=== PATIENT | male | born 1990 ===

== ENCOUNTER 2025-05-28 17:24 | Outpatient (REF) | payer SELFPAY ==
[2025-05-28 17:08] LABS: Abs Immature Grans 0.03 10^3/uL (0.0-0.06); HCT 42.5 % (40.0-50.0); HGB 13.9 g/dL (13.5-17.5); Immature Grans % 0.3 %; MCH 28.5 pg (27.0-33.0); MCHC 32.7 % (32.0-36.0); MCV 87 fL (80-95); MPV 9.9 fL (8.0-11.0); Platelet Count 434 10^3/uL (130-400); RBC 4.87 10^6/uL (4.36-5.78); RDW 13.1 % (11.8-14.1); RDW-SD 41.8 fL; WBC 9.66 10^3/uL (4.4-10.8)
[2025-05-28 17:16] LABS: ESR 41 mm/hr (0-15)
[2025-05-28 18:15] LABS: Uric Acid 9.3 mg/dL (3.5-7.2)
[2025-05-28 18:39] LABS: Calculated LDL 125 mg/dL (<100); Cholesterol 201 mg/dL (<200); HDL Cholesterol 48 mg/dL (>or=40); Triglyceride 143 mg/dL (<150)
[2025-05-28 18:49] LABS: Hemoglobin A1C 6.7 % (<5.7)
== END 2025-05-28 17:25 | disposition home or self-care (01) ==
LOC: NCHCN 17:24
PROVIDERS: Visit Provider Family Medicine
DX: Z13.220 Encounter for screening for lipoid disorders (principal); Z13.1 Encounter for screening for diabetes mellitus; M19.90 Unspecified osteoarthritis, unspecified site
CPT/HCPCS: 80061; 85652; 83036; 84550; 85025; 86431